=== PATIENT | female | born 1950 | race Caucasian/White ===

== ENCOUNTER 2020-03-10 09:44 | Emergency (ER) | payer MEDICARE, OTHER ==
--- NOTE | 2020-03-10 11:10 | EDM.PDOC ---
ED HPI GENERAL MEDICAL PROBLEM - General Chief Complaint: ENT Problem Stated Complaint: Q TIP STUCK IN EAR Time Seen by Provider: 03/10/20 11:06 Source of Information: Reports: Patient, RN Notes Reviewed History Limitations: Reports: No Limitations - History of Present Illness INITIAL COMMENTS - FREE TEXT/NARRATIVE: Patient is a 70-year-old female who presents to the ED for the evaluation of a Q -tip stuck in her left ear canal. Patient states that she was simply using a Q- tip when the cotton part of the Q-tip ended up getting dislodged in her left ear canal, she can see this, but she cannot retrieve it or self as she does not have the tools at home to do so. She denies any other sick-like symptoms, denies any sort of hearing issues associated with his Q-tip. This happened this morning prior to arrival to the ER. - Related Data Allergies Allergy/AdvReac Type Severity Reaction Status Date / Time morphine Allergy Cannot Verified 03/10/20 10:12 Remember Penicillins Allergy Cannot Verified 03/10/20 10:12 Remember Home Meds: Home Meds . [No Known Home Meds] 04/08/15 [History] Past Medical History Cardiovascular History: Reports: Heart Murmur - Infectious Disease History Infectious Disease History: Reports: Chicken Pox, Measles, Rheumatic Fever - Past Surgical History GI Surgical History: Reports: Appendectomy Social & Family History - Family History Family Medical History: Noncontributory - Tobacco Use Smoking Status *Q: Never Smoker - Caffeine Use Caffeine Use: Reports: None - Recreational Drug Use Recreational Drug Use: No ED ROS ENT - Review of Systems Review Of Systems: Comprehensive ROS is negative, except as noted in HPI. ED EXAM, ENT - Physical Exam Exam: See Below Exam Limited By: No Limitations General Appearance: Alert, WD/WN, No Apparent Distress Ears: Normal External Exam, Hearing Grossly Normal, Normal TMs (Normal TMs were visualized after removal of the cotton end of the Q-tip in the left ear canal.) , Canal Foreign Body (White cotton-like material lodged in the left EAC.) Respiratory/Chest: No Respiratory Distress, Lungs Clear, Normal Breath Sounds, No Accessory Muscle Use, Chest Non-Tender Cardiovascular: Normal Peripheral Pulses, Regular Rate, Rhythm, No Murmur Neurological: Alert, Oriented, Normal Cognition Psychiatric: Normal Affect, Normal Mood Skin: Warm, Dry, Intact, Normal Color, No Rash Course - Vital Signs Last Recorded V/S: Last Vital Signs Temp 97.1 F 03/10/20 10:10 Pulse 85 03/10/20 10:10 Resp 18 03/10/20 10:10 BP 189/91 H 03/10/20 10:10 Pulse Ox 99 03/10/20 10:10 - Re-Assessments/Exams Free Text/Narrative Re-Assessment/Exam: 03/10/20 11:08 Patient presents to the ED for the evaluation of a Q-tip stuck in her left ear canal. This was removed successfully with forceps. No foreign material was left in the ear canal. TMs were visualized and the ear canal was also visualized after removal of the foreign body, and appears to be within normal limits. Patient states she feels much better after removal of this foreign body. Departure - Departure Time of Disposition: 11:09 Disposition: Home, Self-Care 01 Condition: Good Clinical Impression: Foreign body in ear Qualifiers: Encounter type: initial encounter Laterality: left Qualified Code(s): T16.2XXA - Foreign body in left ear, initial encounter - Discharge Information *PRESCRIPTION DRUG MONITORING PROGRAM REVIEWED*: No *COPY OF PRESCRIPTION DRUG MONITORING REPORT IN PATIENT KAYLIE: No Instructions: Ear Foreign Body, [id number] Referrals: PCP,None [Primary Care Provider] - Additional Instructions: You were evaluated in the ER today regarding the Q-tip stuck in your left ear. This was successfully removed at this ER visit. There should be no other complications associated after the removal. Please return to the ER at any time if symptoms should change or worsen. Sepsis Event Note (ED) - Evaluation Sepsis Screening Result: No Definite Risk - Focused Exam Vital Signs: Vital Signs Temp Pulse Resp BP Pulse Ox 03/10/20 10:10 97.1 F 85 18 189/91 H 99
[2020-03-10 13:13] VITALS: BP 185/98; PULSE 87
== END 2020-03-10 11:28 | disposition home or self-care (01) ==
LOC: JD.ED 09:44
DX: T16.2XXA Foreign body in left ear, initial encounter (principal); Z88.0 Allergy status to penicillin; Z88.5 Allergy status to narcotic agent
CPT/HCPCS: 69200; 99282